=== PATIENT | male | born 1945 | race Caucasian/White ===

== ENCOUNTER 2017-12-09 16:12 | Outpatient (CLI) | payer BC, MEDICARE ==
[2017-12-09 16:47] LABS: #Basophils 0.1 thou/uL (0.0-0.2); #Eosinphils 0.4 thou/uL (0.0-0.7); #Lymphocytes 2.1 thou/uL (1.20-3.40); #Monocytes 0.9 thou/uL (0.11-0.59); #Neutrophils 3.9 thou/uL (1.40-6.50); %Basophils 1.1 % (0.0-1.0); %Eosinophils 6.1 % (0.0-10.0); %Lymphocytes 28.6 % (21.0-51.0); %Monocytes 11.5 % (0.0-10.0); %Neutrophils 52.8 % (42.0-75.0); Hemoglobin 14.4 g/dL (14.0-18.0); Mean Corpuscular HGB CONC 34.3 g/dL (32.0-36.0); Mean Corpuscular Hemoglobin 30.8 pg (27.0-31.0); Mean Corpuscular Volume 89.7 fL (78.0-98.0); Mean Platelet Volume 8.2 fL (7.4-10.4); Platelet Count 236 thou/uL (130-400); RBC Distribution Width 11.8 % (11.5-14.5); Red Blood Cell (RBC) Count 4.69 mill/uL (4.70-6.10); White Blood Cell (WBC) Count 7.4 thou/uL (4.8-10.8)
== END 2017-12-09 16:13 | disposition home or self-care (01) ==
LOC: LABBT 16:12
PROVIDERS: ATTEND Orthopaedic Surgery Hand Surgery
DX: Z01.812 Encounter for preprocedural laboratory examination (principal); M65.332 Trigger finger, left middle finger
CPT/HCPCS: 85025

== ENCOUNTER 2017-12-10 05:46 | Day surgery (SDC) | payer BC, MEDICARE ==
[2017-12-09 16:14] VITALS: BMI 21.2
[2017-12-10] MEDS ORDERED: Fentanyl 100 MCG/2 ML VIAL ONE (06:13)
[2017-12-10] MEDS ORDERED: Bupivacaine PF 0.5% 30 ML VIAL ONE (06:31)
[2017-12-10] MEDS ORDERED: Bacitracin Zinc Ointment 30 gm TUBE ONE (06:31)
[2017-12-10] MEDS ORDERED: Propofol 1,000 MG/100 ML VIAL IV ONE (06:35)
[2017-12-10] MEDS ORDERED: CEFAZOLIN/Water 2 GM/20 ML SYRINGE ONE (06:50)
[2017-12-10] MEDS ORDERED: Betamet Acet/Betamet Na Ph 30 MG/5 ML VIAL ONE (07:18)
[2017-12-10] MEDS ORDERED: Ketorolac Tromethamine 30 MG/ML VIAL ONE (08:05)
--- NOTE | 2017-12-10 08:54 | OP ---
DATE OF PROCEDURE: 12/10/2017 SURGEON: Dr. Arden Richter PREOPERATIVE DIAGNOSIS: Left middle finger trigger digit. POSTOPERATIVE DIAGNOSIS/FINDINGS: Left middle finger trigger digit with extensive thickened A1 pulle y and very reactive tenosynovium both sides of the A1 angel underneath. PROCEDURE PERFORMED: 1. Radical flexor tenosynovectomy, complex to the profundus and superficialis, left middle finger. 2. Trigger digit release, left middle finger. TOURNIQUET TIME: 8 minutes. ESTIMATED BLOOD LOSS: 10 mL or less. INJECTABLE: Yes, Celestone 3 mL drip technique. SPECIMEN: Tenosynovium sent to the lab for permanent. INDICATIONS: A very resistant recalcitrant A1 angel tenosynovitis resolved only minimally when inje ction and began to be stage IV with a true locking. DESCRIPTION OF PROCEDURE: After successful anesthesia by [employer] [facility] for conscious sedation propofol, the patient underwent prior to prepping and draping 10 mL 0.5% Marcaine block. This was al tone the middle finger at the MP joint flexion crease palmarly. We then prepped and draped the hand, and approximately 10 minutes after injection, we outlined an inc ision along this line, carried it through skin and subcutaneous tissue, it was 1 cm wide. We then id entified the radial and ulnar digital nerve and digital neurovascular bundles, protecting them from t he other field and saw a large amount of ____ to the subcutaneous tissue and a very thick tenosynoviu m. The A1 angel was extremely thick, but no ganglion had formed at this point. We released the A1 p ulley in the midline, resecting a 1 mm central portion from proximal to distal. Underneath the A1 pu lley, and distal and proximal to it was marked tenosynovium, so we did a radical flexor tenosynovecto my for both the flexor digitorum profundus and superficialis. We then irrigated the area, sent the s pecimen to lab, used drip technique to place 3 mL of Celestone and then closed the wound without evid ence of anesthetic or operative complication. Hemostasis was excellent. The patient had a dressing applied and left the operating room without complication.
[2017-12-10] MEDS ORDERED: PROPOFOL 200 MG/20 ML VIAL ONE (14:26)
[2017-12-10] MEDS ORDERED: Ondansetron HCl/PF 4 MG/2 ML Vial ONE (14:26)
== END 2017-12-10 08:32 | disposition home or self-care (01) ==
LOC: SDC 05:46
PROVIDERS: ATTEND Orthopaedic Surgery Hand Surgery
PROC: 0LB80ZZ Excision of Left Hand Tendon, Open Approach (ICD-10-PCS; principal; 2017-12-10)
PROC: 0LN80ZZ Release Left Hand Tendon, Open Approach (ICD-10-PCS; principal; 2017-12-10)
DX: M65.332 Trigger finger, left middle finger (principal); E03.9 Hypothyroidism, unspecified; E78.5 Hyperlipidemia, unspecified; K21.9 Gastro-esophageal reflux disease without esophagitis; Z79.899 Other long term (current) drug therapy
CPT/HCPCS: 88305; 96372; 96374; J0702; J1885; J2405; J2704; J3010; S0020

== ENCOUNTER 2018-09-01 10:28 | Outpatient (CLI) | payer BC, MEDICARE ==
[2018-09-01 13:34] LABS: #Basophils 0.1 thou/uL (0.0-0.2); #Eosinphils 0.3 thou/uL (0.0-0.7); #Lymphocytes 1.8 thou/uL (1.20-3.40); #Monocytes 0.6 thou/uL (0.11-0.59); #Neutrophils 3.9 thou/uL (1.40-6.50); %Basophils 0.8 % (0.0-1.0); %Eosinophils 4.2 % (0.0-10.0); %Lymphocytes 27.4 % (21.0-51.0); %Monocytes 9.4 % (0.0-10.0); %Neutrophils 58.3 % (42.0-75.0); Hemoglobin 14.2 g/dL (14.0-18.0); Mean Corpuscular HGB CONC 33.3 g/dL (32.0-36.0); Mean Corpuscular Hemoglobin 29.6 pg (27.0-31.0); Mean Platelet Volume 8.9 fL (7.4-10.4); Platelet Count 183 thou/uL (130-400); Red Blood Cell (RBC) Count 4.77 mill/uL (4.70-6.10); White Blood Cell (WBC) Count 6.7 thou/uL (4.8-10.8)
== END 2018-09-01 10:29 | disposition home or self-care (01) ==
LOC: LABBT 10:28
PROVIDERS: ATTEND Orthopaedic Surgery Hand Surgery
DX: Z01.818 Encounter for other preprocedural examination (principal); G56.02 Carpal tunnel syndrome, left upper limb; M65.342 Trigger finger, left ring finger
CPT/HCPCS: 85025; 93005; 93010

== ENCOUNTER 2018-09-02 05:39 | Day surgery (SDC) | payer BC, MEDICARE ==
[2018-09-01 11:11] VITALS: BMI 20.7
[2018-09-02] MEDS ORDERED: Betamet Acet/Betamet Na Ph 30 MG/5 ML VIAL ONE (06:19)
[2018-09-02] MEDS ORDERED: Sodium Chloride 0.9% 10 ML ONE (06:19)
[2018-09-02] MEDS ORDERED: Bupivacaine PF 0.5% 30 ML VIAL ONE (06:19)
[2018-09-02] MEDS ORDERED: Bacitracin Zinc Ointment 30 gm TUBE ONE (06:19)
[2018-09-02] MEDS ORDERED: Fentanyl 100 MCG/2 ML VIAL ONE (06:33)
[2018-09-02] MEDS ORDERED: Midazolam HCl 2 mg/2 ml Vial ONE (06:33)
[2018-09-02] MEDS ORDERED: Ketorolac Tromethamine 30 MG/ML VIAL ONE (08:58)
--- NOTE | 2018-09-03 10:47 | OP ---
DATE OF PROCEDURE: 09/02/2018 PREOPERATIVE DIAGNOSES: 1. Left carpal tunnel syndrome. 2. Left A1 angel trigger finger, at the small finger and ring finger. POSTOPERATIVE DIAGNOSES: 1. Left carpal tunnel syndrome. 2. Left A1 angel trigger finger, at the small finger and ring finger. PROCEDURES PERFORMED: 1. Left carpal tunnel release. 2. Left small finger trigger digit release. 3. Left ring finger trigger digit release. TOURNIQUET TIME: 33 minutes. BLOOD LOSS: 5 mL. FINDINGS: Tight A1 angel and tight transverse carpal ligament with a minimal stippling of the median nerve underneath. DESCRIPTION OF PROCEDURE: After successful general LMA technique, the limb was prepped and draped. We then gave the patient 5 mL of Marcaine at each of the 3 sites. We inflated the tourniquet after exsanguination of the limb. I made a V-shaped incision centered over the A1 angel of the small finger and then over the ring finger, retracted the median nerve, the digital nerves and visualized the A1 angel. We then released it in the midline under direct visualization using a Creek blade. The patient then had the same procedure done at the small and ring finger. We closed it with interrupted 4-0 nylon in a mattress pattern. The patient then had attention turned to transverse carpal ligament. We made an incision in line with the ring finger, carried from the Keith cardinal line to a point 6 mm distal to the volar wrist flexion crease. We then visualized the palmaris longus and just ulnar to that, entered the transverse carpal ligament. We released it from the midpoint distally under direct visualization and from the midpoint proximally using combination of Creek blade and tenotomy scissors. Tourniquet deflated and hemostasis obtained. Placed Celestone 2 mL on the median nerve. There was stippling in the midportion of the carpal tunnel. We closed with interrupted 4-0 nylon. Gave additional 5 mL of Marcaine injection, placed a bulky dressing and the patient left the operating room without evidence of anesthetic or operative complication. Job ID: [id number]
== END 2018-09-02 09:43 | disposition home or self-care (01) ==
LOC: SDC 05:39 → EEVIPCON 10:15
PROVIDERS: ATTEND Orthopaedic Surgery Hand Surgery
PROC: 0LN80ZZ Release Left Hand Tendon, Open Approach (ICD-10-PCS; principal; 2018-09-02)
PROC: 01N50ZZ Release Median Nerve, Open Approach (ICD-10-PCS; principal; 2018-09-02)
DX: G56.02 Carpal tunnel syndrome, left upper limb (principal); M65.352 Trigger finger, left little finger; M65.342 Trigger finger, left ring finger; M65.311 Trigger thumb, right thumb; M65.331 Trigger finger, right middle finger; M65.341 Trigger finger, right ring finger; E03.9 Hypothyroidism, unspecified; E78.5 Hyperlipidemia, unspecified; K21.9 Gastro-esophageal reflux disease without esophagitis; N40.0 Benign prostatic hyperplasia without lower urinary tract symptoms; I10 Essential (primary) hypertension; Z79.899 Other long term (current) drug therapy
CPT/HCPCS: J0690; J0702; J1885; J2250; J3010; J3490; S0020

== ENCOUNTER 2018-09-17 14:19 | Inpatient (IN) | payer BC, MEDICARE ==
[~2018-09-17 14:19] MED LIST: Lidocaine 1% PF 5 ML VIAL ONE; PHENYLEPHRINE-NS 100 MCG/ML 10 ML SYRINGE ONE; PROPOFOL 200 MG/20 ML VIAL ONE
[2018-09-17] MEDS ORDERED: Propofol 1,000 MG/100 ML VIAL IV ONE (19:19)
[2018-09-17] MEDS ORDERED: Bacitracin Zinc Ointment 30 gm TUBE ONE (19:27)
[2018-09-17] MEDS ORDERED: Bupivacaine PF 0.5% 30 ML VIAL ONE (19:27)
[2018-09-17] MEDS ORDERED: Sodium Chloride 0.9% 30 ML ONE (19:27)
[2018-09-17] MEDS ORDERED: Promethazine HCl 25 MG/ML VIAL SLOW IVP PRN (21:21)
[2018-09-17] MEDS ORDERED: Promethazine HCl 25 MG/ML VIAL IM PRN (21:21)
[2018-09-17] MEDS ORDERED: Morphine Sulfate 2 MG/ML SYRINGE SLOW IVP PRN (21:21)
[2018-09-17] MEDS ORDERED: Ondansetron HCl/PF 4 MG/2 ML Vial IVP PRN (21:21)
[2018-09-17] MEDS ORDERED: PACU-Morphine 4MG/ML VIAL SLOW IVP PRN (21:21)
[2018-09-17] MEDS ORDERED: HYDROmorphone 2 MG/ML VIAL SLOW IVP PRN (21:21)
[2018-09-17] MEDS ORDERED: Meperidine HCl/PF 25 MG/ML VIAL SLOW IVP PRN (21:21)
[2018-09-17] MEDS ORDERED: Ondansetron PF 4 MG/2 ML Vial IV PRN (21:39)
[2018-09-17] MEDS ORDERED: Bisacodyl 10 MG SUPP PR PRN (21:39)
[2018-09-17] MEDS ORDERED: traMADol HCl 50 MG TAB PO PRN (21:39)
[2018-09-17] MEDS ORDERED: Milk Of Magnesia 30 ML UDCUP PO PRN (21:39)
[2018-09-17] MEDS ORDERED: Acetaminophen 325 MG TAB PO PRN (21:39)
[2018-09-17] MEDS ORDERED: Meperidine HCl/PF 25 MG/ML VIAL IM PRN (21:43)
[2018-09-17] MEDS ORDERED: Communication Order-Pharmacy FS PRN (21:45)
[2018-09-17] MEDS ORDERED: TETANUS AND DIPHTHERIA TOX/PF 0.5 ML DISP.SYRIN IM SCH (21:45)
[2018-09-17] MEDS: Ketorolac Tromethamine 30 MG/ML VIAL IVP SCH (23:58)
[2018-09-18 01:24] VITALS: BMI 20.7
--- NOTE | 2018-09-18 02:31 | OP ---
DATE OF PROCEDURE: 09/17/2018 PREOPERATIVE DIAGNOSES: 1. Left small finger abscess with flexor sheath infection propagated more distal and proximal under the A2 angel. 2. Left ring finger tenosynovitis. 3. Left carpal canal tenosynovitis. FINDINGS: 1. No gross infection, but mild serous fluid in the carpal canal. 2. Findings of no fluid or gross infection at the ring finger wound. PROCEDURES PERFORMED: 1. Left carpal canal flexor tenosynovectomy. 2. Left small finger flexor tenosynovectomy. 3. Left small finger abscess debridement. 4. Left small finger flexor sheath irrigation. 5. Left ring finger wound debridement. All wounds dressed, closed. INSTRUMENTS USED: Pollack catheter for flexor sheath irrigation, small finger. DEBRIDEMENT TECHNIQUES: 1. Depth was down to including the flexor sheath, did not involve bone or joint. 2. Tenosynovectomy was associated with each debridement. 3. Instruments used were Slidell blade, tenotomy scissors, Adson's, poly catheter, and Pulsavac. The findings were gross purulence down to but not including bone or joint, and around the small finger and the proximal A2 angel level of the flexor sheath, but not to the level of the A3 angel. INDICATIONS: The patient had a trigger finger release approximately 10 days ago. He presented to the clinic one day prior to this with what appeared to be possible early deep infection, so we removed the sutures, packed the wound at the small finger and had him to come back to clinic today for the procedure. At that point, he had more swelling, more erythema, and more tenderness without true Kanavel signs even on dual antibiotics, so we recommended he have the procedures listed above today in order to try to rid him of his infection, allow IV and then oral antibiotics to work. DESCRIPTION OF PROCEDURE: After successful general endotracheal anesthesia as well as a block performed by Dr. Verma of [employer] [facility], the patient was then prepped and draped, was given a time-out appropriately and had conscious sedation. We then after prepping and draping, exsanguinated the limb, inflated tourniquet to 250 mmHg pressure. Outlined the incision, v-shaped just proximal to the A3 angel on the small finger, outlined incision extended small finger incision 1 cm distal and 2 cm proximal, carpal tunnel release of 5 mm in each direction and his previous ring finger release slightly more distal approximately by 0.5 cm each side. We then immediately went through the small finger using blunt dissection. We found marked abscess cap formation around the tendon, no real propagation of the infection proximal to 1 cm from the A1 angel release, but under the A2 angel there was gross purulence, so we decided to use that incision distal to the A2 angel, made a small holding sheath, there was no gross purulent drainage or serous fluid, so we placed the Pollack catheter here and then irrigated with 200 mL of normal saline through syringes. We then followed this with debridement using the technique listed above in the entire abscess cavity, all gross purulence, all denuded fat, and any necrotic wound edge. We then turned attention to the ring finger where we extended the incision 5 mm in a wide pattern distally, 1 cm radially and proximally. We carried this through the skin and subcutaneous tissue. No serous fluid, hemorrhage, or synovial thickening, but we performed a flexor tenosynovectomy for biopsy here. The specimen from the small finger had already been sent for biopsy as well. Because there was some swelling up to the level of just distal carpal canal, we used a carpal tunnel incision, entered with a Slidell blade, carried through the skin and subcutaneous tissue, identified the median nerve, retracted it slightly radially and then we visualized minimal serous fluid, no gross purulence, and no gross tendon sheath abscess, but we did a tenosynovectomy of the flexor digitorum profundus tendons in order to see better down the small finger tendon. The patient then had irrigation with the Pollack catheter from the carpal canal distally into the primary small finger wound, we then finished Pulsavac on the small finger wound and had no further gross evidence of necrotic tissue or infection. We then placed a small packing in the radial PIP joint level wound, placed normal saline soaked sterile 4 x 4 in each of the other wounds, covered them up in appropriate fashion with the Kerlix on a soft dressing and the patient left the operating room without evidence of anesthetic or operative complication with culture sent to the lab of the small finger abscess , the ring finger flexor sheath tenosynovectomy and the carpal tunnel flexor sheath tenosynovectomy. Job ID: [id number]
[2018-09-18] MEDS: Ketorolac Tromethamine 30 MG/ML VIAL IVP SCH ×3 (05:32→18:03)
[2018-09-18 06:05] LABS: #Eosinphils 0.1 thou/uL (0.0-0.7); #Lymphocytes 1.3 thou/uL (1.20-3.40); #Monocytes 0.9 thou/uL (0.11-0.59); #Neutrophils 5.3 thou/uL (1.40-6.50); %Basophils 0.2 % (0.0-1.0); %Eosinophils 1.8 % (0.0-10.0); %Lymphocytes 16.4 % (21.0-51.0); %Monocytes 11.9 % (0.0-10.0); %Neutrophils 69.7 % (42.0-75.0); Hemoglobin 12.5 g/dL (14.0-18.0); Mean Corpuscular HGB CONC 33.5 g/dL (32.0-36.0); Mean Corpuscular Hemoglobin 30.1 pg (27.0-31.0); Mean Platelet Volume 8.3 fL (7.4-10.4); Platelet Count 153 thou/uL (130-400); RBC Distribution Width 11.5 % (11.5-14.5); Red Blood Cell (RBC) Count 4.14 mill/uL (4.70-6.10); White Blood Cell (WBC) Count 7.6 thou/uL (4.8-10.8)
[2018-09-18] MEDS: Aspirin 81 mg Enteric Coated Tablet PO SCH ×2 (08:51→20:18)
[2018-09-18] MEDS ORDERED: Ampicillin/Sulbactam 3 GM in Sodium Chloride 0.9% 100 ML IVPB SCH (09:00)
[2018-09-18] MEDS: Vancomycin HCl 1 GM in Premix Bag 1 BAG IVPB SCH ×2 (10:48→20:18)
[2018-09-18] MEDS: Morphine 4 MG/ML VIAL SLOW IVP PRN (13:01)
[2018-09-18] MEDS: Piperacillin/Tazobactam 2.25 GM in Sodium Chloride 0.9% 100 ML IVPB SCH ×2 (14:13→22:38)
[2018-09-18] MEDS ORDERED: Morphine 4 MG/ML VIAL SLOW IVP SCH (17:00)
[2018-09-18] MEDS ORDERED: Ketorolac Tromethamine 60 MG/2 ML VIAL IVP SCH (23:59)
[2018-09-19] MEDS: Piperacillin/Tazobactam 2.25 GM in Sodium Chloride 0.9% 100 ML IVPB SCH ×2 (05:35→14:03)
[2018-09-19] MEDS ORDERED: Ketorolac Tromethamine 60 MG/2 ML VIAL IVP PRN (06:00)
[2018-09-19] MEDS ORDERED: Ketorolac Tromethamine 30 MG/ML VIAL IVP PRN (06:00)
[2018-09-19] MEDS: Vancomycin HCl 1 GM in Premix Bag 1 BAG IVPB SCH (08:58)
[2018-09-19] MEDS: Aspirin 81 mg Enteric Coated Tablet PO SCH ×2 (08:58→20:58)
[2018-09-19] MEDS: Morphine 4 MG/ML VIAL SLOW IVP PRN (16:29)
[2018-09-19 19:04] LABS: #Eosinphils 0.3 thou/uL (0.0-0.7); #Lymphocytes 1.9 thou/uL (1.20-3.40); #Monocytes 0.8 thou/uL (0.11-0.59); #Neutrophils 5.7 thou/uL (1.40-6.50); %Basophils 0.2 % (0.0-1.0); %Eosinophils 3.5 % (0.0-10.0); %Lymphocytes 22.4 % (21.0-51.0); %Monocytes 8.6 % (0.0-10.0); %Neutrophils 65.4 % (42.0-75.0); Hemoglobin 13.7 g/dL (14.0-18.0); Mean Corpuscular HGB CONC 33.5 g/dL (32.0-36.0); Mean Corpuscular Hemoglobin 29.9 pg (27.0-31.0); Mean Corpuscular Volume 89.3 fL (78.0-98.0); Mean Platelet Volume 7.9 fL (7.4-10.4); Platelet Count 188 thou/uL (130-400); RBC Distribution Width 11.3 % (11.5-14.5); Red Blood Cell (RBC) Count 4.57 mill/uL (4.70-6.10); White Blood Cell (WBC) Count 8.7 thou/uL (4.8-10.8)
[2018-09-19] MEDS: Cefepime 2 GM in Sodium Chloride 0.9% 100 ML IVPB SCH (19:16)
[2018-09-19 19:19] LABS: Hemoglobin A1c 5.6 % (4.0-6.0)
[2018-09-19 19:26] LABS: Anion Gap 11 mmol/L (10-20); BUN (Urea Nitrogen) 11 mg/dL (8.4-25.7); Calc. Creatinine Clearance 75 mL/min (70-130); Calcium 9.6 mg/dL (7.8-10.44); Carbon Dioxide 32 mmol/L (23-31); Chloride 99 mmol/L (98-107); Estimated GFR-MDRD 90; Glucose 137 mg/dL (83-110); Potassium 4.2 mmol/L (3.5-5.1); Sodium 138 mmol/L (136-145)
[2018-09-19 20:36] LABS: Vancomycin, Trough 6.8 ug/mL
[2018-09-19] MEDS: HYDROcodone/Acetaminophen 5/325 mg Tablet PO PRN (20:59)
[2018-09-20] MEDS ORDERED: Gentamicin Sulfate 80 MG in Premix Bag 1 BAG IVPB SCH
--- NOTE | 2018-09-20 02:35 | CON ---
DATE OF CONSULTATION: 09/19/2018 REASON FOR CONSULTATION: Postoperative infection of trigger finger release and carpal tunnel surgery. HISTORY OF PRESENT ILLNESS: This is a 73-year-old patient of Dr. Richter who had previous initial hand surgery in the left side in November last year, which was a left middle finger trigger digit release. Then on September 04, he underwent a left carpal tunnel release and a left small trigger finger release. The left ring finger release procedure was uneventful, but he developed inflammatory changes and Dr. Richter had to perform I and D with tenosynovectomy of the left carpal canal. There was left small finger debridement of an abscess and ring finger wound debridement. All the wounds were dressed and closed and currently Mr. Hope is awake. He has minimal pain. No headaches, visual symptoms, sore throat, odynophagia, or dysphagia. No cough or sputum production. No abdominal pain. No genitourinary symptoms. No back pain. No diarrhea. No vomiting, hematemesis or melena. PAST MEDICAL HISTORY: Includes facial reconstruction, inguinal hernia repair, hand surgeries noted above. He also has a history of rectal prolapse repair. There is a history of hypothyroidism and malignant skin cancer in remission after resection and BPH. ALLERGY HISTORY: Negative. CURRENT MEDICATION LIST: [place], Ecotrin, Dulcolax cefepime, levofloxacin, ondansetron, and tramadol. FAMILY HISTORY: Noncontributory. SOCIAL HISTORY: Never smoker. Drinks occasionally. Retired. OBJECTIVE: VITAL SIGNS: T-max 99.3. Other vital signs are normal. GENERAL: The patient is in no distress. SKIN: The left hand is dressed at this time. We have no photos. I did not remove the dressing since it is fresh in the postoperative period. Peripheral IV access. HEENT: Ocular movements conjugate. Conjunctivae normal. Oral cavity normal. NECK: Supple. LUNGS: Symmetric, clear breath sounds. HEART: S1, S2. Regular rate. No S3 or S4. ABDOMEN: Soft, not distended or tender. No ascites. No bladder distention. EXTREMITIES: Excellent pulses in lower extremities. NEUROLOGIC: Nonfocal including cognitive function/ LABORATORY DATA: White cell count 7.6 and 8.7, hemoglobin 13.7, platelets normal. Differential was fairly normal. Chemistry not remarkable. Glucose 137, calcium 9.6. Vancomycin trough 6.8. Blood cultures with gram-negative anne, which has been identified as Pseudomonas aeruginosa with pending susceptibilities. This is from 3 different samples from the wound. ASSESSMENT: Carpal tunnel syndrome and trigger finger status post release of both areas with postoperative infection with a gram-negative anne identified as Pseudomonas aeruginosa. DISCUSSION: The presence of Pseudomonas aeruginosa is concerning for possibility of infiltration of water content in the wound site. In the interview, I was not able to identify any episode where that might have occurred since the patient does not know exactly what happened. We will switch him to cefepime and levofloxacin until we have the final susceptibility results and then determine subsequent treatment course. Plan is do at least 3 weeks of treatment hopefully with oral quinolone. If it is resistant to quinolones, then we will have to place a PICC line and treat him in the outpatient setting with a PICC line. No evidence of bacteremia at this point in time. No evidence of dissemination of the other sites. Job ID: [id number] MTDD
[2018-09-20] MEDS: HYDROcodone/Acetaminophen 5/325 mg Tablet PO PRN ×3 (02:51→23:21)
[2018-09-20] MEDS: Cefepime 2 GM in Sodium Chloride 0.9% 100 ML IVPB SCH (06:13)
[2018-09-20] MEDS: Aspirin 81 mg Enteric Coated Tablet PO SCH ×2 (08:43→20:22)
--- NOTE | 2018-09-20 22:21 | PRG ---
DATE OF SERVICE: 09/20/2018 SUBJECTIVE: Mr. Hope is awake. He has moderate pain. No respiratory symptoms. No chest pain. No abdominal pain or diarrhea. No symptoms. OBJECTIVE: VITAL SIGNS: Vital signs are normal. He is afebrile. GENERAL: Awake and alert, in no distress. LUNGS: Clear. HEART: S1, S2. Regular rate. EXTREMITIES: Hand is dressed. LABORATORY DATA: Microbiology with Pseudomonas aeruginosa, which is jha-susceptible. The other labs have not been repeated. ASSESSMENT AND DISCUSSION: Carpal tunnel syndrome, trigger finger with postoperative infection with Pseudomonas aeruginosa as the only organism retrieved from all samples. The organism is jha-susceptible. We will switch him to oral levofloxacin. Treat for about 3 weeks. Follow up in the clinic. Job ID: [id number] [facility]
[2018-09-21] MEDS: HYDROcodone/Acetaminophen 5/325 mg Tablet PO PRN (05:22)
[2018-09-21] MEDS: Aspirin 81 mg Enteric Coated Tablet PO SCH (08:43)
[2018-09-21 12:19] VITALS: BP 120/83; TEMP 98.1
== END 2018-09-21 14:15 | disposition home or self-care (01) | DRG 858 ==
LOC: SDC 14:19 → SURG A 22:22 → EEVIPCON 22:22 → OBSVTOIN 09-19 18:31
PROVIDERS: ADMIT Orthopaedic Surgery Hand Surgery; ATTEND Orthopaedic Surgery Hand Surgery
PROC: 0P9 Upper Bones, Drainage (ICD-10-PCS; principal; 2018-09-17)
PROC: 0LD80ZZ Extraction of Left Hand Tendon, Open Approach (ICD-10-PCS; 2018-09-17)
DX: T81.40XA Infection following a procedure, unspecified, initial encounter (principal); E03.9 Hypothyroidism, unspecified; Y83.8 Other surgical procedures as the cause of abnormal reaction of the patient, or of later complication, without mention of misadventure at the time of the procedure; B96.5 Pseudomonas (aeruginosa) (mallei) (pseudomallei) as the cause of diseases classified elsewhere; N40.0 Benign prostatic hyperplasia without lower urinary tract symptoms; M65.842 Other synovitis and tenosynovitis, left hand; Z90.49 Acquired absence of other specified parts of digestive tract; Z85.828 Personal history of other malignant neoplasm of skin
CPT/HCPCS: 36415; 80048; 80202; 83036; 85025; 85652; 87070; 87077; 87186; 87205; C1758; J0295; J0692; J1580; J1885; J2270; J2543; J2704; J3370; J3490; S0020

== ENCOUNTER 2018-09-24 16:55 | Day surgery (SDC) | payer BC, MEDICARE ==
[2018-09-24] MEDS ORDERED: Levofloxacin 500 mg/D5W 100 ml Premix Bag ONE (17:05)
[2018-09-24 17:16] LABS: #Eosinphils 0.3 thou/uL (0.0-0.7); #Monocytes 0.7 thou/uL (0.11-0.59); #Neutrophils 5.9 thou/uL (1.40-6.50); %Basophils 0.5 % (0.0-1.0); %Eosinophils 3.7 % (0.0-10.0); %Monocytes 7.6 % (0.0-10.0); %Neutrophils 66.2 % (42.0-75.0); Hemoglobin 13.7 g/dL (14.0-18.0); Mean Corpuscular HGB CONC 33.9 g/dL (32.0-36.0); Mean Corpuscular Hemoglobin 30.1 pg (27.0-31.0); Mean Corpuscular Volume 88.9 fL (78.0-98.0); Mean Platelet Volume 7.8 fL (7.4-10.4); Platelet Count 270 thou/uL (130-400); RBC Distribution Width 11.3 % (11.5-14.5); Red Blood Cell (RBC) Count 4.55 mill/uL (4.70-6.10); White Blood Cell (WBC) Count 8.9 thou/uL (4.8-10.8)
[2018-09-24 17:41] LABS: Anion Gap 13 mmol/L (10-20); BUN (Urea Nitrogen) 19 mg/dL (8.4-25.7); Calc. Creatinine Clearance 0 mL/min (70-130); Calcium 10.3 mg/dL (7.8-10.44); Carbon Dioxide 27 mmol/L (23-31); Chloride 100 mmol/L (98-107); Estimated GFR-MDRD 87; Glucose 88 mg/dL (83-110); Potassium 4.1 mmol/L (3.5-5.1); Sodium 136 mmol/L (136-145)
[2018-09-24] MEDS ORDERED: Bupivacaine PF 0.5% 30 ML VIAL ONE (19:17)
[2018-09-24] MEDS ORDERED: Bacitracin Zinc Ointment 30 gm TUBE ONE (19:17)
[2018-09-24] MEDS ORDERED: Sodium Chloride 0.9% 20 ML ONE ×2 (19:18→20:33)
[2018-09-24] MEDS ORDERED: Fentanyl 100 MCG/2 ML VIAL ONE (19:27)
[2018-09-24] MEDS ORDERED: Vancomycin HCl 750 MG in Sodium Chloride 0.9% 250 ML 250 ML IVPB SCH (20:45)
[2018-09-24] MEDS ORDERED: Midazolam HCl 2 mg/2 ml Vial ONE (21:07)
--- NOTE | 2018-09-25 03:17 | OP ---
DATE OF PROCEDURE: 09/24/2018 PREOPERATIVE DIAGNOSES: 1. Left flexor pollicis longus tenosynovitis from inside the carpal canal to the thumb A1 angel, A2 angel region and oblique angel region. 2. Flexor digitorum profundus proximal aspect open just proximal to previous carpal tunnel tenosynovitis without gross infection. 3. Small finger wound 1 cm to ring finger A1 angel wound 2.5 cm, and small finger A1 angel wound 3 cm. POSTOPERATIVE DIAGNOSES: 1. Left flexor pollicis longus tenosynovitis from inside the carpal canal to the thumb A1 angel, A2 angel region and oblique angel region. 2. Flexor digitorum profundus proximal aspect open just proximal to previous carpal tunnel tenosynovitis without gross infection. 3. Small finger wound 1 cm to ring finger A1 angel wound 2.5 cm, and small finger A1 angel wound 3 cm. PROCEDURE PERFORMED: 1. Debridement of small finger wound, left. 2. Debridement of ring finger, A1 angel, 2 cm wound. 3. Closure of ring finger 2.5 cm wound. 4. Radical flexor tenosynovectomy of flexor pollicis longus (at the carpal tunnel and flexor digitorum profundus proximal to the previous flexor profundus tenosynovectomy). 5. Flexor sheath irrigation, flexor pollicis longus from the wrist/carpal tunnel into the thumb just distal to the oblique angel. COMPLICATIONS: None. CULTURES: Flexor sheath fluid with no gross infection seen. INJECTABLE: 20 mL of 0.5% Marcaine, 10 given before the procedure and 10 after. ESTIMATED BLOOD LOSS: 10 mL. TOURNIQUET TIME: 28 minutes. OTHER FINDINGS: Fluid in the flexor pollicis longus tendon that was with thickening of the flexor pollicis longus and flexor digitorum profundus. Flexor tendon sheath very clean, ring finger A1, small finger proximal phalanx, and small finger A1 angel wound areas. DESCRIPTION OF PROCEDURE: After the patient was examined in clinic today and he had swelling around the carpal tunnel, with tenderness proximal to the previous carpal tunnel incision and some pain along the flexor sheath of flexor pollicis longus at the A1 angel and mild stretch pain, it appeared he might have resolved his primary problem, however, have residual intracarpal canal flexor pollicis longus and mild sheath flexor pollicis longus infectious tenosynovitis. For this reason and the fact that the other wounds here, we thought he might be a candidate for debridement of the wounds to heal with partial closure and inspection of the flexor sheath of the thumb. There was no true Kanavel signs otherwise. The patient was then brought to the operating room today, limb exsanguinated, prepped and draped. A time-out was done appropriately, tourniquet inflated to 250 mmHg pressure. It would last for 28 minutes. We then extended his carpal tunnel incision to 0.1 cm proximal to the previous incision. It was now made across volar flexor crease of the wrist by 5 mm. We then had the wound inspected first, visualized the tendons ulnar to the median nerve within the carpal canal and there was a 1 cm area of very thickened flexor tendon, so we did a flexor tenosynovectomy. There was no gross purulence and no discoloration here. Next, we found the flexor pollicis longus tendon sheath within the carpal canal, opened it, did a small tenosynovectomy. There was some increased fluid, but it was not thick. It was actually clear. We then made an oblique incision dissected down, protecting neurovascular bundle just distal to the oblique angel into the sheath, some fluid escaped that was not mucopurulent, but slightly less clear than 1 in the canal. We then placed the Pollack catheter from distal to the A2 oblique angel and irrigated with 100 mL of normal saline sterile solution with Bacitracin inside. Then, we reversed it using almost same amount of fluid total. This was irrigated from inside the carpal canal flexor pollicis longus sheath to where the fluid came out through the incision distal to the oblique angel. We then irrigated the carpal canal with approximately 2 L of normal saline and Pulsavac pressure, then inspected the other wounds, debrided inner edges, which was the A1 angel of wound where there was no infection, no fat desquamation and no evidence of tenosynovitis. This was also done with A1 angel of the ring finger and small finger distal wound. For this reason, these were irrigated with a combination of 1 L as well on the Pulsavac pressure. We deflated the tourniquet, obtained hemostasis, we left the thumb and the distal 2/3 of the carpal tunnel incision open closed in the distal 1/3 and closing loosely the entire 2 cm ring finger wound and the proximal one-third of the small finger A1 angel wound. We closed the entire small finger proximal phalanx wound. All closed with 4-0 nylon in interrupted simple pattern. A bulky dressing was applied after packing normal saline soaked gauze in the open part of the small finger A1 angel wound, the open part of the carpal tunnel wound, and the thumb small oblique 1 cm wound. He left the operating room without evidence of anesthetic or operative complication. Job ID: [id number]
== END 2018-09-24 22:27 | disposition home or self-care (01) ==
LOC: SDC 16:55
PROVIDERS: ATTEND Orthopaedic Surgery Hand Surgery
PROC: 0L9 Tendons, Drainage (ICD-10-PCS; principal; 2018-09-24)
PROC: 0LB80ZZ Excision of Left Hand Tendon, Open Approach (ICD-10-PCS; principal; 2018-09-24)
PROC: 0HBQXZZ Excision of Finger Nail, External Approach (ICD-10-PCS; principal; 2018-09-24)
DX: M65.832 Other synovitis and tenosynovitis, left forearm (principal); M65.842 Other synovitis and tenosynovitis, left hand; S61.207A Unspecified open wound of left little finger without damage to nail, initial encounter; S61.205A Unspecified open wound of left ring finger without damage to nail, initial encounter; Z79.899 Other long term (current) drug therapy; X58.XXXA Exposure to other specified factors, initial encounter
CPT/HCPCS: 80048; 85025; 85652; 87070; 87205; C1758; J1956; J2250; J3010; J3370; J3490; J7050; S0020

== ENCOUNTER 2018-09-30 06:43 | Day surgery (SDC) | payer BC, MEDICARE ==
[2018-09-29 17:02] VITALS: BMI 20.2
[2018-09-30] MEDS ORDERED: Bupivacaine PF 0.5% 30 ML VIAL ONE (08:32)
[2018-09-30] MEDS ORDERED: Sodium Chloride 0.9% 10 ML ONE (08:32)
[2018-09-30] MEDS ORDERED: Bacitracin Zinc Ointment 30 gm TUBE ONE (08:32)
[2018-09-30] MEDS ORDERED: Fentanyl 100 MCG/2 ML VIAL ONE (08:35)
[2018-09-30] MEDS ORDERED: Levofloxacin 500 mg/D5W 100 ml Premix Bag ONE (08:48)
[2018-09-30] MEDS ORDERED: Ketorolac Tromethamine 30 MG/ML VIAL ONE (10:15)
--- NOTE | 2018-09-30 11:08 | OP ---
DATE OF PROCEDURE: 09/30/2018 PREOPERATIVE DIAGNOSIS: Left hand wound with a total of approximately 6.5 cm open area. POSTOPERATIVE DIAGNOSIS: Left hand wound with a total of approximately 6.5 cm open area with open area being 2 cm over the small finger ray in the mid palm, 3.5 cm over the carpal tunnel incision and 1 cm over the thumb palmar aspect. FINDINGS: No gross infection. Minimal granulation tissue formed the carpal tunnel incision and the center wound. PROCEDURES PERFORMED: 1. Debridement of wound in superficial depth. The technique used is following;. a. Excisional. b. Use of [place] blade and tenotomy scissors, primarily dissecting hemostats/Wilson tip irrigation with 250 mL of normal saline and the depth was down to and include the tendon sheath. 2. Closure of wound, total of 6.5 cm: This involved the wounds described above in diagnosis. INDICATIONS: The patient presents for staged wound management now. Clinically, he had great resolution of his infection with no further swelling, erythema, or tenderness. Stress pain at this point even had improved to the point where he had approximately 80 degrees of PIP joint motion except for small finger, which was 70 degrees. DESCRIPTION OF PROCEDURE: After successful general LMA technique, the limb was prepped and draped. The patient had the time-out done appropriately. We then injected the primary incision and small finger incision with a total of 12 mL of 0.5% Marcaine with epinephrine between the 2. We then inspected the wound, used a curette to debride the wound edges along with a [place] blade combination with tenotomy scissors. This was also done to remove the granulation deep after visualizing the median nerve and sure it was intact throughout the field and throughout the entire procedure. We irrigated the area, deflated the tourniquet, all wounds were clean. No gross infection or tenosynovitis seen. We then closed the primary palmar carpal tunnel area incision wound with 3-0 nylon interrupted simple pattern and then closed the remaining wounds with 4-0 nylon in simple interrupted pattern. The patient had a bulky dressing applied, left the operating room without evidence of anesthetic or operative complication. Job ID: [id number]
[2018-09-30] MEDS ORDERED: Lidocaine 1% PF 5 ML VIAL ONE (15:14)
[2018-09-30] MEDS ORDERED: Ondansetron PF 4 MG/2 ML Vial ONE (15:14)
[2018-09-30] MEDS ORDERED: diphenhydrAMINE 50 MG/ML VIAL ONE (15:14)
[2018-09-30] MEDS ORDERED: PROPOFOL 200 MG/20 ML VIAL ONE (15:14)
== END 2018-09-30 11:35 | disposition home or self-care (01) ==
LOC: SDC 06:43
PROVIDERS: ATTEND Orthopaedic Surgery Hand Surgery
PROC: 0LB80ZZ Excision of Left Hand Tendon, Open Approach (ICD-10-PCS; principal; 2018-09-30)
DX: S61.402D Unspecified open wound of left hand, subsequent encounter (principal); E03.9 Hypothyroidism, unspecified; E78.5 Hyperlipidemia, unspecified; K21.9 Gastro-esophageal reflux disease without esophagitis; X58.XXXD Exposure to other specified factors, subsequent encounter; Z79.899 Other long term (current) drug therapy
CPT/HCPCS: J0131; J1200; J1885; J1956; J2001; J2405; J2704; J3010; J3490; S0020

== ENCOUNTER 2020-12-27 14:36 | Outpatient (CLI) | payer MEDICARE, BC | END 2020-12-27 14:37 | disposition home or self-care (01) | LOC: BICRAD 14:36 | PROVIDERS: ATTEND Family Medicine | DX: S22.32XA Fracture of one rib, left side, initial encounter for closed fracture (principal); S22.20XA Unspecified fracture of sternum, initial encounter for closed fracture | CPT/HCPCS: 71120 ==

== ENCOUNTER 2021-01-19 19:00 | Outpatient (CLI) | payer MEDICARE, BC | END 2021-01-19 19:01 | disposition home or self-care (01) | LOC: SLEEPLAB 19:00 | PROVIDERS: ATTEND Family Medicine | DX: G47.11 Idiopathic hypersomnia with long sleep time (principal); G47.419 Narcolepsy without cataplexy; R53.83 Other fatigue; R42 Dizziness and giddiness; F32.A Depression, unspecified | CPT/HCPCS: 95810 ==

== ENCOUNTER 2023-06-20 12:59 | Outpatient (CLI) | payer MEDICARE, BC ==
[~2023-06-20 12:59] MED LIST changes: +Iopamidol 370 76% 100 ML VIAL ONE; -Lidocaine 1% PF 5 ML VIAL ONE; -PHENYLEPHRINE-NS 100 MCG/ML 10 ML SYRINGE ONE; -PROPOFOL 200 MG/20 ML VIAL ONE
== END 2023-06-20 13:00 | disposition home or self-care (01) ==
LOC: CT 12:59
PROVIDERS: ATTEND Psychiatry & Neurology Neurology
DX: G70.00 Myasthenia gravis without (acute) exacerbation (principal); G47.10 Hypersomnia, unspecified
CPT/HCPCS: 71260; Q9967